=== PATIENT | male | born 1995 | race Caucasian/White ===

== ENCOUNTER 2021-05-18 10:49 | Emergency (ER) | payer MEDICAID ==
[~2021-05-18] VITALS: Ht 177.8 cm; Wt 60.1 kg
--- NOTE | 2021-05-18 11:28 | NUR ---
PT CAME IN CO OF HAVING MULTIPLE SZ. LAST ONE WAS AT ABOUT 0300 TODAY AND HIS FRIENDS SAW HIM. PT REPORTS TAKING DEPAKOTE BUT SAYS IT ISNT WORKING. HE TOOK 2 THIS MORNING. PT RESTING IN [facility] WITH SZ PADS AND SIDE RAILS UP. EKG COMPLETE. CONNECTED TO ALL MONITORING EQUIPMENT
[2021-05-18 12:36] LABS: BASOPHILS % (AUTO) 1 % (0-1); EOSINOPHILS % (AUTO) 3 % (1-7); LYMPHOCYTES % (AUTO) 31 % (22-44); MEAN CORPUSCULAR HEMOGLOBIN 31.4 pg (27.5-34.5); MEAN CORPUSCULAR HGB CONC 34.7 g/dL (33.2-36.2); MEAN PLATELET VOLUME 7.9 fL (7.4-10.4); MONOCYTES % (AUTO) 10 % (2-9); NEUTROPHILS % (AUTO) 55 % (42-75); PLATELET COUNT 305 x10^3/uL (130-400); RED BLOOD COUNT 4.67 x10^6/uL (4.38-5.82); RED CELL DISTRIBUTION WIDTH 12.6 % (9.4-14.8)
[2021-05-18 12:43] LABS: ANION GAP 7 mmol/L (5-15); CALCIUM 9.2 mg/dL (8.5-10.1); CHLORIDE 108 mmol/L (98-107)
[2021-05-18 12:46] LABS: ALANINE AMINOTRANSFERASE 50 U/L (12-78); ALKALINE PHOSPHATASE 93 U/L (45-117); BILIRUBIN,TOTAL 0.6 mg/dL (0.2-1.0); CREATININE 0.92 mg/dL (0.7-1.3); TOTAL PROTEIN 7.6 g/dL (6.4-8.2)
[2021-05-18 12:54] VITALS: BP 116/66
== END 2021-05-18 13:35 | disposition home or self-care (01) ==
LOC: ED 11:30
DX: G40.909 Epilepsy, unspecified, not intractable, without status epilepticus (principal); Z76.0 Encounter for issue of repeat prescription; R00.0 Tachycardia, unspecified; I10 Essential (primary) hypertension; F17.200 Nicotine dependence, unspecified, uncomplicated
CPT/HCPCS: 36415; 80053; 85025; 93005; 99284